=== PATIENT | female | born 1995 | race Caucasian/White ===

== ENCOUNTER 2017-02-01 15:25 | Emergency (ER) | payer OTHER ==
[~2017-02-01] VITALS: Ht 162.6 cm; Wt 52.6 kg
[2017-02-01 15:33] VITALS: BP 127/86; TEMP 36.9; Ht 162.6 cm; Wt 52.6 kg
[2017-02-01] MEDS ORDERED: XYLOCAINE 1%/SOD BICARB 20 ML VIAL INFIL ONE (15:45)
--- NOTE | 2017-02-01 15:46 | EMERGENCY ROOM VISIT NOTE ---
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 She states it was stuck so she was pulling on it and it fell suddenly. Her finger was stuck in the hole that is used to open the window. The bleeding has stopped. Denies weakness or numbness of the finger. The patient has full range of motion of the fingers. She rates her discomfort a 2/ 10. THe patient denies any other injuries. The patient's tetanus shot is up to date. REVIEW OF SYSTEMS: A 6 system review of systems was completed with positives and pertinent negatives listed in the HPI. ALLERGIES: Neoprene MEDICATIONS: Patient denies PMH: Patient denies SOCIAL HISTORY: The patient is a university student. She does not smoke. PHYSICAL EXAM: Vital Signs: Reviewed Nurse's notes, vital signs stable. GENERAL : This is a 21-year-old female, in no acute distress, well developed, well nourished. SKIN: There is a 1 cm long laceration on the lateral aspect of the right third finger. The edges gape apart with traction. There is no foreign material in the wound and it looks clean. There is no significant bleeding. No deep structures such as tendons, bones, or nerves are seen in the base of the wound. Extension and flexion of the finger is full and strong. Full range of motion of the wrist and other fingers. Capillary refill less than 2 seconds. There are several other superficial lacerations, one that is 1 cm but not gaping or bleeding on the dorsal aspect of the right third finger. There is a superficial skin flap noted on the second finger. Normal sensation to light and sharp touch. EMERGENCY DEPARTMENT COURSE: I examined the patient. Using sterile technique the wound was cleaned with Betadine. 2 ml of 1% buffered lidocaine was used to infiltrate the wound to anesthetize the patient. Once the area was anesthetized , I cleaned and explored the wound. Upon further inspection, it seems to be a very superficial skin avulsion and not truly a deep laceration. This was not full thickness and did not require sutures. The same was found on the superficial laceration on the second finger. The wounds were debrided minimally. A small piece of wood was removed. The wounds were cleaned and dressed. A splint was placed on the third finger secondary to the pain and swelling. The patient should follow-up with orthopedics if there is no significant improvement in 5-7 days. The patient was discharged home in good condition. RIGHT HAND 3 VIEWS CLINICAL HISTORY: Right hand injury. FINDINGS: 3 views of the right hand are obtained. No prior studies are available for comparison at the time of dictation. The skeletal structures are well mineralized. No fracture is seen. The joint spaces of the hand are well-maintained. Mild soft tissue swelling is suggested in the third finger. IMPRESSION: No acute bony abnormality is seen in the right hand. Current/Historical Medications No Active Prescriptions or Reported Meds Allergies Coded Allergies: No Known Allergies (Unverified , 02/01/17) Vital Signs Date Time Temp Pulse Resp B/P (MAP) Pulse Ox O2 Delivery O2 Flow Rate FiO2 02/01/17 16:42 72 16 98 02/01/17 15:33 36.9 78 16 127/86 100 Room Air Departure Information Impression Primary Impression: Finger contusion Dispostion Home / Self-Care Condition GOOD Prescriptions No Active Prescriptions or Reported Meds Referrals Trinidad Perez M.D. (PCP) Cortez Narayanan MD Patient Instructions ED Crush Injury Finger No Fx, My [facility] Additional Instructions Keep wound clean and dry. Wear the splint over the next 4-5 days as the finger heals. If there is persistent swelling, pain or decreased movement, contact orthopedics to schedule a follow up appointment. Return with worsening symptoms , redness, warmth, drainage of pus. Problem Qualifiers Primary Impression: Finger contusion Encounter type: initial encounter
--- NOTE | 2017-02-01 16:17 | DIAGNOSTIC IMAGING REPORT ---
RIGHT HAND 3 VIEWS CLINICAL HISTORY: Right hand injury. FINDINGS: 3 views of the right hand are obtained. No prior studies are available for comparison at the time of dictation. The skeletal structures are well mineralized. No fracture is seen. The joint spaces of the hand are well-maintained. Mild soft tissue swelling is suggested in the third finger. IMPRESSION: No acute bony abnormality is seen in the right hand. Electronically signed by: Dave Ordaz M.D. 02/01/2017 4:15 PM Dictated Date/Time: 02/01/2017 4:14 PM
[2017-02-01 16:42] VITALS: PULSE 72; O2SAT 98
== END 2017-02-01 16:44 | disposition home or self-care (01) ==
LOC: C.EDB 15:28 → C.EDD 16:44
DX: S60.021A Contusion of right index finger without damage to nail, initial encounter (principal); W45.8XXA Other foreign body or object entering through skin, initial encounter